=== PATIENT | male | born 1985 | race African-American/Black ===

== ENCOUNTER 2020-12-18 21:38 | Emergency (ER) | payer SELFPAY ==
--- NOTE | 2020-12-18 23:29 | ER ---
Nurse's Notes [facility] Name: Kiran Atwood Age: 35 yrs Sex: Male : 1985 Arrival Date: 12/18/2020 Time: 21:43 Bed 11 Private MD: Diagnosis: Unspecified sexually transmitted disease Presentation: 12/18 22:01 Chief complaint: Patient states: 1. Condom broke Monday during sex. States he started ll1 having penile discharge, dysuria Monday. No fever. 2. R lower jaw tooth pain for 2 weeks. Coronavirus screen: Client denies travel out of the [place] in the last 14 days. At this time, the client does not indicate any symptoms associated with coronavirus-19. Ebola Screen: Patient denies travel to an Ebola-affected area in the 21 days before illness onset. Initial Sepsis Screen: Does the patient meet any 2 criteria? No. Patient's initial sepsis screen is negative. Does the patient have a suspected source of infection? Yes: Dysuria/Frequency/Urgency/UTI. Risk Assessment: Do you want to hurt yourself or someone else? Patient reports no desire to harm self or others. Onset of symptoms was December 16, 2020. 22:01 Method Of Arrival: Ambulatory ll1 22:01 Acuity: LALO 4 ll1 Historical: - Allergies: 22:04 No Known Allergies; ll1 - PMHx: 22:04 Asthma; ll1 - PSHx: 22:04 Finger surgery; ll1 - Immunization history:: Flu vaccine is not up to date. - Social history:: Smoking status: Patient denies any tobacco usage or history of. Vital Signs: 22:01 BP 147 / 85; Pulse 88; Resp 16; Temp 98.6; Pulse Ox 100% ; Weight 81.65 kg; Height 6 ll1 ft. 0 in. (182.88 cm); Pain 0/10; 22:01 Body Mass Index 24.41 (81.65 kg, 182.88 cm) ll1 ED Course: 21:43 Patient arrived in ED. cf2 22:04 Triage completed. ll1 22:05 Arm band placed on. ll1 23:06 [facility] kb 23:06 Fredrick Wetzel MD is Attending Physician. kb 23:28 Brooklyn Melgoza, RN is Primary Nurse. dm5 Administered Medications: 23:40 Drug: Zithromax 1 grams Route: PO; dm5 23:40 Drug: Rocephin (cefTRIAXone) 500 mg Route: IM; Site: left gluteus; dm5 Outcome: 23:29 Discharge ordered by . kb 12/19 00:06 Patient left the ED. dm5 Signatures: Ayla Ely, RAILROAD FIRER-C RAILROAD FIRER-Ckb Brooklyn Melgoza, RN RN dm5 Poncho Sheikh cf2 Vika Hurd RN RN ll1
--- NOTE | 2020-12-18 23:29 | EDPHYS ---
Physician Documentation [facility] Name: Kiran Atwood Age: 35 yrs Sex: Male : 1985 Arrival Date: 12/18/2020 Time: 21:43 Bed 11 Private MD: Fredrick Cary HPI: 12/18 23:27 This 35 yrs old Black Male presents to ER via Ambulatory with complaints of Pain With kb Urination. 23:28 The patient presents with a possible STD exposure, symptoms include yellow penile kb discharge. Onset: The symptoms/episode began/occurred 2 day(s) ago. Modifying factors: The symptoms are alleviated by nothing, the symptoms are aggravated by nothing. Associated signs and symptoms: The patient has no apparent associated signs or symptoms. Severity of symptoms: At their worst the symptoms were mild, in the emergency department the symptoms are unchanged. The patient has not experienced similar symptoms in the past. The patient has not recently seen a physician. Historical: - Allergies: 22:04 No Known Allergies; ll1 - PMHx: 22:04 Asthma; ll1 - PSHx: 22:04 Finger surgery; ll1 - Immunization history:: Flu vaccine is not up to date. - Social history:: Smoking status: Patient denies any tobacco usage or history of. ROS: 23:26 Constitutional: Negative for fever, chills, and weight loss, Cardiovascular: Negative kb for chest pain, palpitations, and edema, Respiratory: Negative for shortness of breath, cough, wheezing, and pleuritic chest pain, Abdomen/GI: Negative for abdominal pain, nausea, vomiting, diarrhea, and constipation, MS/Extremity: Negative for injury and deformity, Skin: Negative for injury, rash, and discoloration, Neuro: Negative for headache, weakness, numbness, tingling, and seizure. 23:26 : Positive for penile discharge. Exam: 23:26 Constitutional: This is a well developed, well nourished patient who is awake, alert, kb and in no acute distress. Head/Face: Normocephalic, atraumatic. Chest/axilla: Normal chest wall appearance and motion. Nontender with no deformity. No lesions are appreciated. Cardiovascular: Regular rate and rhythm with a normal S1 and S2. No gallops, murmurs, or rubs. Normal PMI, no JVD. No pulse deficits. Respiratory: Lungs have equal breath sounds bilaterally, clear to auscultation and percussion. No rales, rhonchi or wheezes noted. No increased work of breathing, no retractions or nasal flaring. Abdomen/GI: Soft, non-tender, with normal bowel sounds. No distension or tympany. No guarding or rebound. No evidence of tenderness throughout. Skin: Warm, dry with normal turgor. Normal color with no rashes, no lesions, and no evidence of cellulitis. MS/ Extremity: Pulses equal, no cyanosis. Neurovascular intact. Full, normal range of motion. Neuro: Awake and alert, GCS 15, oriented to person, place, time, and situation. Cranial nerves II-XII grossly intact. Motor strength 5/5 in all extremities. Sensory grossly intact. Cerebellar exam normal. Normal gait. Vital Signs: 22:01 BP 147 / 85; Pulse 88; Resp 16; Temp 98.6; Pulse Ox 100% ; Weight 81.65 kg; Height 6 ll1 ft. 0 in. (182.88 cm); Pain 0/10; 22:01 Body Mass Index 24.41 (81.65 kg, 182.88 cm) ll1 MDM: 23:06 Patient medically screened. kb 23:26 Data reviewed: vital signs, nurses notes. Data interpreted: Pulse oximetry: on room air kb is 100 %. Interpretation: normal. Counseling: I had a detailed discussion with the patient and/or guardian regarding: the historical points, exam findings, and any diagnostic results supporting the discharge/admit diagnosis, lab results, the need for outpatient follow up, a family practitioner, to return to the emergency department if symptoms worsen or persist or if there are any questions or concerns that arise at home. Administered Medications: 23:40 Drug: Zithromax 1 grams Route: PO; dm5 23:40 Drug: Rocephin (cefTRIAXone) 500 mg Route: IM; Site: left gluteus; dm5 Disposition: 12/18/20 23:29 Discharged to Home. Impression: Unspecified sexually transmitted disease. - Condition is Stable. - Discharge Instructions: Sexually Transmitted Disease, [id number]. - Medication Reconciliation Form, Thank You Letter, Antibiotic Education, Prescription Opioid Use form. - Follow up: Emergency Department; When: As needed; Reason: Worsening of condition. Follow up: Private Physician; When: 2 - 3 days; Reason: Recheck today's complaints, Continuance of care, Re-evaluation by your physician. Addendum: 12/20/2020 19:55 Co-signature as Attending Physician, Fredrick Wetzel MD I agree with the assessment and c reis plan of care. Signatures: Ayla Ely, SAP BASIS ADMINISTRATOR-C SAP BASIS ADMINISTRATOR-Ckb Brooklyn Melgoza, RN RN dm5 Fredrick Wetzel MD MD cha Lewis, Lynsay RN RN ll1 Corrections: (The following items were deleted from the chart) 12/19 00:06 12/18 23:29 12/18/2020 23:29 Discharged to Home. Impression: Unspecified sexually dm5 transmitted disease. Condition is Stable. Forms are Medication Reconciliation Form, Thank You Letter, Antibiotic Education, Prescription Opioid Use. Follow up: Emergency Department; When: As needed; Reason: Worsening of condition. Follow up: Private Physician; When: 2 - 3 days; Reason: Recheck today's complaints, Continuance of care, Re-evaluation by your physician. kb
[2020-12-18] MEDS ORDERED: AZITHROMYCIN 250 MG TAB ONE (23:48)
[2020-12-18] MEDS ORDERED: WATER FOR INJ,STERILE 10 ML ONE (23:48)
[2020-12-18] MEDS ORDERED: CEFTRIAXONE 500 MG/VIAL ONE (23:48)
== END 2020-12-19 00:06 | disposition home or self-care (01) ==
LOC: ER 21:38
DX: A64 Unspecified sexually transmitted disease (principal); J45.909 Unspecified asthma, uncomplicated
CPT/HCPCS: 96372; 99282; J0696